=== PATIENT | female | born 1980 | race Caucasian/White ===

== ENCOUNTER 2016-12-25 08:07 | Day surgery (SDC) | payer MEDICAID, OTHER ==
--- NOTE | 2016-12-22 10:59 | PCM.PREANE ---
Preanesthetic Assessment - ANESTHESIA/TRANSFUSION/FAMILY HX Family History of Anesthesia Reaction: No - PHYSICAL ASSESSMENT Height: 1.75 m Weight: 113.398 kg ASA Class: 2 Other: preg test positive, both urine and serum. Case cancelled for today - ALLERGIES Allergies/Adverse Reactions: Allergies Allergy/AdvReac Type Severity Reaction Status Date / Time azithromycin Allergy throat Verified 12/20/16 12:20 [From Zithromax Z-Marques] closes povidone-iodine Allergy Rash Verified 12/20/16 12:20 [From Betadine] soap [From Betadine] Allergy Rash Verified 12/20/16 12:20 - BLOOD Blood Available: No - ANESTHESIA PLAN Preop Beta Babak: No Anesthesia Type Planned: general anesthesia PreAnesthesia Questionnaire - Past Health History Medical/Surgical History: Denies Medical/Surgical History HEENT History: Reports: Other (see below) Other HEENT History: wears glasses Cardiovascular History: Reports: None Respiratory History: Reports: None Gastrointestinal History: Reports: None Genitourinary History: Reports: None 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 History: Reports: Fracture Neurological History: Reports: None Psychiatric History: Reports: None Endocrine/Metabolic History: Reports: Obesity/BMI 30+ Hematologic History: Reports: None Immunologic History: Reports: None Oncologic (Cancer) History: Reports: None Dermatologic History: Reports: None - Infectious Disease History Infectious Disease History: Reports: None - Past Surgical History Head Surgeries/Procedures: Reports: None Female Surgical History: Reports: section Musculoskeletal Surgical History: Reports: Arthroscopic knee Other Musculoskeletal Surgeries/Procedures:: left elbow surgery, rt ACL repair - SUBSTANCE USE Smoking Status *Q: Current Every Day Smoker Tobacco Use Within Last Twelve Months: Cigarettes Second Hand Smoke Exposure: No Days Per Week of Alcohol Use: 0 Recreational Drug Use History: No - HOME MEDS Home Medications: Home Meds traMADol [Ultram] 1 tab PO ASDIRECTED PRN 12/20/16 [History] - CURRENT (IN HOUSE) MEDS Current Meds: Current Medications Acetaminophen/Hydrocodone Bitart ([place] 325-5 Mg) 1 - 2 tab PO Q4H PRN PRN Reason: Pain Lactated Ringer's (Ringers, Lactated) 1,000 mls @ 100 mls/hr IV ASDIRECTED PALLAVI Cefazolin Sodium/Dextrose 2 gm (/ Premix) 50 mls @ 100 mls/hr IV ONCALL PALLAVI
[~2016-12-25 08:07] MED LIST: Acetaminophen/HYDROcodone 325-5 MG Tab PO PRN; Lactated Ringers 1,000 ML IV SCH; ceFAZolin 2 GM in Premix Bag 1 BAG IV SCH
[2016-12-25 08:22] VITALS: BP 134/76
--- NOTE | 2016-12-25 09:54 | PCM.SN ---
- Free Text/Narrative Note: I was informed by anesthesia staff of patient's positive test with elevated HCG levels. Decision made with patient to hold off on elective surgical intervention at this time. Patient may contact our office to reschedule surgery when she is past first trimester with calciner operator approval. Anesthesia has informed patient and I was told she is in agreement with the plan.
== END 2016-12-25 09:30 | disposition home or self-care (01) ==
LOC: MW.SDS 08:07
PROVIDERS: ATTEND Orthopaedic Surgery
DX: Z33.1 Pregnant state, incidental (principal); E66.9 Obesity, unspecified; F17.210 Nicotine dependence, cigarettes, uncomplicated; Z53.8 Procedure and treatment not carried out for other reasons; Z88.1 Allergy status to other antibiotic agents; Z91.048 Other nonmedicinal substance allergy status; Z98.890 Other specified postprocedural states
CPT/HCPCS: 36415; 81025; 84702; J7120

== ENCOUNTER → 2017-01-01 | Outpatient (CLI) | payer OTHER | END | disposition home or self-care (01) | LOC: MW.CHOBGYN 10:36 | PROVIDERS: ATTEND Nurse Practitioner Women's Health | DX: L29.8 Other pruritus (principal); Z33.1 Pregnant state, incidental | CPT/HCPCS: 36415; 84702; 87480; 87510; 87660 ==

== ENCOUNTER → 2017-01-12 | Outpatient (CLI) | payer SELFPAY | LOC: MW.CHOBGYN 10:31 | PROVIDERS: ATTEND Nurse Practitioner Women's Health | DX: O20.0 Threatened abortion (principal) | CPT/HCPCS: 36415; 84702 ==

== ENCOUNTER → 2017-01-29 | Outpatient (CLI) | payer SELFPAY | LOC: MW.CHOBGYN 09:03 | PROVIDERS: ATTEND Nurse Practitioner Women's Health | DX: Z39.2 Encounter for routine postpartum follow-up (principal) | CPT/HCPCS: 36415; 84702 ==

== ENCOUNTER → 2017-02-02 | Outpatient (CLI) | payer SELFPAY | LOC: MW.CHOBGYN 09:16 | PROVIDERS: ATTEND Nurse Practitioner Women's Health | DX: Z39.2 Encounter for routine postpartum follow-up (principal) | CPT/HCPCS: 36415; 84702 ==

== ENCOUNTER 2017-02-14 08:48 | Day surgery (SDC) | payer OTHER ==
[~2017-02-14 08:48] MED LIST changes: -Acetaminophen/HYDROcodone 325-5 MG Tab PO PRN; +Lidocaine 1% 50 ML MDV ONE; +Lidocaine 2% 5 ML SDV ONE; +Midazolam 1 MG/ML 2 ML SDV ONE; +Ondansetron 4 MG/2 ML SDV ONE; +Propofol 200 MG/20 ML SDV ONE; +Sodium Chloride 0.9% 20 ML ONE; +ceFAZolin 1 GM Vial ONE; +fentaNYL 250 MCG/5 ML SDV ONE
[2017-02-14] MEDS ORDERED: Acetaminophen/HYDROcodone 325-5 MG Tab PO PRN (09:00)
--- NOTE | 2017-02-14 09:26 | PCM.PREANE ---
Preanesthetic Assessment - Procedure Proposed Procedure: Knee arthroscopy and menisectomy - Anesthesia/Transfusion/Family Hx Anesthesia History: Prior Anesthesia Without Reaction Family History of Anesthesia Reaction: No Transfusion History: No Prior Transfusion(s) Intubation History: Unknown - Review of Systems General: No Symptoms Pulmonary: No Symptoms Cardiovascular: No Symptoms Gastrointestinal: No symptoms Neurological: No Symptoms, Other (Pain in right knee occasionally affecting gait) Other: Reports: None - Physical Assessment Height: 5 ft 8 in Weight: 280 lb Mental Status: Alert & Oriented x3 Airway Class: Mallampati = 1 Dentition: Reports: Normal Dentition Thyro-Mental Finger Breadths: 3 Mouth Opening Finger Breadths: 3 ROM/Head Extension: Full Lungs: Clear to auscultation, Normal respiratory effort Cardiovascular: Regular Rate, Regular Rhythm, No Murmurs - Lab Values: Laboratory Last Values Urine HCG, Qual NEGATIVE (NEGATIVE) 02/14/17 08:52 - Allergies Allergies/Adverse Reactions: Allergies Allergy/AdvReac Type Severity Reaction Status Date / Time azithromycin Allergy throat Verified 12/20/16 12:20 [From Zithromax Z-Marques] closes povidone-iodine Allergy Rash Verified 12/20/16 12:20 [From Betadine] soap [From Betadine] Allergy Rash Verified 12/20/16 12:20 - Blood Blood Available: No Product(s) Available: None - Anesthesia Plan Pre-Op Medication Ordered: None - Acknowledgements Anesthesia Type Planned: General Anesthesia (LMA) Pt an Appropriate Candidate for the Planned Anesthesia: Yes Alternatives and Risks of Anesthesia Discussed w Pt/Guardian: Yes Pt/Guardian Understands and Agrees with Anesthesia Plan: Yes PreAnesthesia Questionnaire - Past Health History Medical/Surgical History: Denies Medical/Surgical History HEENT History: Reports: Other (see below) Other HEENT History: wears glasses Cardiovascular History: Reports: None Respiratory History: Reports: None Gastrointestinal History: Reports: None Genitourinary History: Reports: None 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 History: Reports: 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 Neurological History: Reports: None Psychiatric History: Reports: None Endocrine/Metabolic History: Reports: Obesity/BMI 30+ Hematologic History: Reports: None Immunologic History: Reports: None Oncologic (Cancer) History: Reports: None Dermatologic History: Reports: None - Infectious Disease History Infectious Disease History: Reports: None - Past Surgical History Head Surgeries/Procedures: Reports: None HEENT Surgical History: Reports: None Cardiovascular Surgical History: Reports: None Respiratory Surgical History: Reports: None GI Surgical History: Reports: None Female Surgical History: Reports: section Endocrine Surgical History: Reports: None Neurological Surgical History: Reports: None Musculoskeletal Surgical History: Reports: Arthroscopic knee Other Musculoskeletal Surgeries/Procedures:: left elbow surgery, rt ACL repair Dermatological Surgical History: Reports: Skin biopsy - SUBSTANCE USE Smoking Status *Q: Current Every Day Smoker Tobacco Use Within Last Twelve Months: Cigarettes Second Hand Smoke Exposure: No Days Per Week of Alcohol Use: 0 Recreational Drug Use History: No - HOME MEDS Home Medications: Home Meds . [No Known Home Meds] 02/12/17 [History] - CURRENT (IN HOUSE) MEDS Current Meds: Current Medications Hydrocodone Bitart/Acetaminophen ([place] 325-5 Mg) 1 - 2 tab PO Q4H PRN PRN Reason: Pain Fentanyl (Sublimaze) 50 mcg IVPUSH Q5M PRN PRN Reason: Pain (severe 7-10) Stop: 02/15/17 08:48 Lactated Ringer's (Ringers, Lactated) 1,000 mls @ 100 mls/hr IV ASDIRECTED ON LICENSE OF [facility] Cefazolin Sodium/Dextrose 2 gm (/ Premix) 50 mls @ 100 mls/hr IV ONCALL ON LICENSE OF [facility] Discontinued Medications Cefazolin Sodium (Ancef) Confirm Administered Dose 2 gm .ROUTE .STK-MED ONE Stop: 02/14/17 07:32 Fentanyl (Sublimaze) Confirm Administered Dose 250 mcg .ROUTE .STK-MED ONE Stop: 02/14/17 07:32 Sodium Chloride (Normal Saline) Confirm Administered Dose 20 mls @ as directed .ROUTE .STK-MED ONE Stop: 02/14/17 07:32 Lidocaine (Xylocaine-Mpf 2%) Confirm Administered Dose 5 ml .ROUTE .STK-MED ONE Stop: 02/14/17 07:31 Lidocaine HCl (Xylocaine 1%) Confirm Administered Dose 50 ml .ROUTE .STK-MED ONE Stop: 02/14/17 07:52 Midazolam HCl (Versed 1 Mg/Ml) Confirm Administered Dose 2 mg .ROUTE .STK-MED ONE Stop: 02/14/17 07:32 Ondansetron HCl (Zofran) Confirm Administered Dose 4 mg .ROUTE .STK-MED ONE Stop: 02/14/17 07:31 Propofol (Diprivan 20 Ml) Confirm Administered Dose 200 mg .ROUTE .STK-MED ONE Stop: 02/14/17 07:32
--- NOTE | 2017-02-14 10:46 | PCM.OPNOTE ---
- General Post-Op/Procedure Note Date of Surgery/Procedure: 02/14/17 Operative Procedure(s): R knee scope with PLM, excision of medial plica, chondroplasty [facility] [place] Post-Op Diagnosis: R knee lat meniscus tear, medial plica, DJD R knee Anesthesia Technique: General LMA Primary Surgeon: Eileen Arreola Assistant In Nursing: Anthony Thakkar in mLs: 5 Condition: Good Free Text/Narrative:: tt=18 min #[id number]
[2017-02-14] MEDS: fentaNYL 100 MCG/2 ML SDV IVPUSH PRN ×2 (11:02→11:07)
[2017-02-14 12:20] VITALS: BP 119/75
--- NOTE | 2017-02-14 14:29 | OR ---
SURGEON: Eileen Arreola MD DATE OF PROCEDURE: 02/14/2017 PREOPERATIVE DIAGNOSIS: Right knee lateral meniscus tear. POSTOPERATIVE DIAGNOSES: 1. Right knee lateral meniscus tear. 2. Right knee medial plica. 3. Degenerative joint disease, right knee. PROCEDURES: Right knee arthroscopy with: 1. Partial lateral meniscectomy. 2. Excision of right medial plica. 3. Chondroplasty of the medial femoral condyle. ASSISTING: Anthony Thakkar PA-C ANESTHESIA: General. ESTIMATED BLOOD LOSS: 5 mL. TOURNIQUET TIME: 18 minutes. COMPLICATIONS: None. DVT PROPHYLAXIS: Not indicated. IMPLANTS USED: None. BRIEF HISTORY: She states she is a 36-year-old female, who has had complaint of increasing right knee pain. She had failed conservative treatment. She has previously undergone a right knee ACL reconstruction. Due to her lack of response to conservative treatment, I did recommend surgical intervention. The risks and goals of the procedure were discussed with the patient and were documented preoperatively. She agreed to proceed. DESCRIPTION OF PROCEDURE: The patient was properly identified and brought to the operating room. She was transferred from the OR cart and placed on the operating room table in supine position. General anesthesia was administered. After adequate anesthesia was obtained, a well-padded tourniquet was applied to the right lower extremity. The right lower extremity was then prepped in standard fashion using ChloraPrep solution. It was then sterilely draped. A time-out was performed to ensure correct site and procedure. Preoperative antibiotics were given. The surgical site had been marked preoperatively. An Esmarch was used to exsanguinate the right lower extremity and the tourniquet was inflated to 250 mmHg. A lateral portal arthrotomy was established over the site of the previous incision. Blunt trocar and cannula were introduced into the suprapatellar space. Camera, inflow, and outflow were assembled. The suprapatellar space showed no significant synovitis. The patellofemoral joint was then visualized. Minor grade 2 chondromalacia was noted centrally along the trochlea. The patella appeared to track centrally. I then extended down the lateral gutter. No loose bodies were identified. As I approached the medial gutter, there was an area of cartilage wear over the superior medial aspect of the medial femoral condyle. There were two plica bands in place. As I flexed and extended the knee, these appeared to impinge on the articular cartilage and did cause the wear. Medial gutter showed no loose bodies. I then entered the medial compartment. A medial portal arthrotomy was established at the site of the previous incision. A blunt probe was inserted. The meniscus was extensively probed and was found to be stable. There was an area of chondromalacia along the weightbearing aspect of the lateral aspect of the medial femoral condyle. This was probed and loose cartilaginous flaps were noted. A chondroplasty of the medial femoral condyle was performed. The area of wear was grade 2 to grade 3 chondromalacia, which measured approximately 15 mm x 20 mm. I then entered the notch. Both the ACL and PCL were visualized and probed and found to be intact. I then entered the lateral compartment. Grade 2 to grade 3 chondromalacia was noted along the lateral tibial plateau. No loose fragments were noted. Grade 1 chondromalacia was noted along the lateral femoral condyle. The meniscus was then probed. There was found to be a radial tear along the posterior horn of the lateral meniscus. There appeared to be a suture within the meniscus, which possibly was due to a prior meniscus repair. The prominent portion of the suture was removed. The meniscus tear was then resected back to a stable remnant using a combination of biters and shaver. The meniscus was again probed and found to be stable. I then re-entered the suprapatellar area. The plical bands were resected. No further impingement on the medial femoral condyle was noted. The instruments were then removed from the knee. The portal sites were closed with a 3-0 nylon. Lidocaine 1% was injected along the portal tracts. Xeroform gauze was placed over the wound and a bulky dressing was applied. The tourniquet was then deflated. She was awakened from her anesthetic and transferred back to the operating room cart. She was brought to recovery room in stable condition. All needle and sponge counts were correct. SIMON / LAWANDA /[id number]
== END 2017-02-14 12:15 | disposition home or self-care (01) ==
LOC: MW.SDS 08:48
PROVIDERS: ATTEND Orthopaedic Surgery
PROC: 0SBC4ZZ Excision of Right Knee Joint, Percutaneous Endoscopic Approach (ICD-10-PCS; principal; 2017-02-14)
DX: S83.281A Other tear of lateral meniscus, current injury, right knee, initial encounter (principal); M67.51 Plica syndrome, right knee; M94.261 Chondromalacia, right knee; M17.11 Unilateral primary osteoarthritis, right knee; F17.210 Nicotine dependence, cigarettes, uncomplicated; E66.9 Obesity, unspecified; Z88.1 Allergy status to other antibiotic agents; Z91.048 Other nonmedicinal substance allergy status; Z98.890 Other specified postprocedural states; Z68.41 Body mass index [BMI] 40.0-44.9, adult
CPT/HCPCS: 29881; 81025; A9270; J0690; J2250; J2405; J3010; J7120; 01400; 88304; J2704